=== PATIENT | female | born 1990 | race Caucasian/White ===

== ENCOUNTER 2017-01-18 09:20 | Outpatient (CLI) | payer OTHER, MEDICAID ==
[2017-02-12] MEDS ORDERED: PRENATAL VIT1 TAB PO (08:15)
[2017-02-12] MEDS ORDERED: IRON325 M1 PO (08:15)
[2017-02-12] MEDS ORDERED: BUSPAR DPS15 MG PO (08:15)
[2017-02-12] MEDS ORDERED: ZOLOFT DPS100 MG PO (08:16)
[2017-02-28] MEDS ORDERED: MOTRIN-DPS800 MG PO (13:51)
[2017-02-28] MEDS ORDERED: NIPPLECREAM TP (13:52)
== END 2017-01-18 12:10 | disposition home or self-care (01) ==
LOC: BC 09:20 → 2LDRP 09:20 → BC 12:10
DX: Z36 Encounter for antenatal screening of mother (principal)

== ENCOUNTER 2017-02-10 23:15 | Observation (INO) | payer OTHER, MEDICAID ==
[2017-02-12] MEDS ORDERED: IRON325 M1 PO (08:15)
[2017-02-12] MEDS ORDERED: BUSPAR DPS15 MG PO (08:15)
[2017-02-12] MEDS ORDERED: PRENATAL VIT1 TAB PO (08:15)
[2017-02-12] MEDS ORDERED: ZOLOFT DPS100 MG PO (08:16)
[2017-02-28] MEDS ORDERED: MOTRIN-DPS800 MG PO (13:51)
[2017-02-28] MEDS ORDERED: NIPPLECREAM TP (13:52)
== END 2017-02-11 07:30 | disposition home or self-care (01) ==
LOC: 2LDRP 23:15 → BC 23:15 → 2LDRP 02-11 02:43
PROVIDERS: ADMIT Obstetrics & Gynecology
DX: O47.1 False labor at or after 37 completed weeks of gestation (principal); Z3A.38 38 weeks gestation of pregnancy